=== PATIENT | male | born 1995 ===

== ENCOUNTER 2024-11-03 10:37 | Inpatient (IN) | payer MEDICAID, SELFPAY ==
[2024-11-03] VITALS (10 sets, daily range): BP systolic 148–220; BP diastolic 90–150; PULSE 87–129; RESP 20–28; TEMP 36.4–37.1; O2SAT 95–100; BMI 25.1; BMI 25.3
--- NOTE | 2024-11-03 10:53 | ED.ALCOHOL ---
HPI - Alcohol General Chief Complaint: ETOH/Substance Use Stated Complaint: ETOH WITHDRAWAL/LAST WEEK,JOAQUIM,BP 220/130 Time Seen by Provider: 11/03/24 10:58 Source: patient and EMS Mode of arrival: EMS Limitations: no limitations History of Present Illness ED Provider: Jasmyn Solis PA-C HPI narrative: Patient is a 29 year old assigned male at with a history of alcohol use presenting to the emergency department today with alcohol withdrawal. Patient states that he drinks 3-4 shots per day and has not had a drink for a week. Patient states that he feels unwell with shaking and weakness. Patient denies ever trying to detox before and has not had a seizure that he knows of. Patient denies any dizziness, lightheadedness, abdominal pain, nausea, vomiting, fever, chills, blurry vision, double vision, loss of vision, chest pain, difficulty breathing, shortness of breath, back pain, night sweats, pain with urination, increased urinary frequency, increased urinary urgency, blood in his urine or stool, syncope or a near syncopal episode, recent trauma or falls, bowel incontinence, bladder incontinence, or any other complaints at this time. Related Data Home Medications ?Medication ?Instructions ?Recorded ?Confirmed No Known Home Meds 11/03/24 11/03/24 Allergies Allergy/AdvReac Type Severity Reaction Status Date / Time No Known Allergies Allergy Verified 11/03/24 10:55 Review of Systems Constitutional: Constitutional: Reports no additional constitutional complaints, Denies chills, Denies fever(s), Denies night sweats and Reports weakness Eyes: Eyes: Reports no additional eye complaints, Denies blurry vision, Denies change in vision, Denies diplopia, Denies eye discharge, Denies loss of vision and Denies eye pain ENT: Denies dizziness Cardiovascular: Cardiovascular: Reports no additional cardiovascular complaints, Denies chest pain, Denies lightheadedness, Denies Loss of Consciousness and Denies dyspnea Respiratory: Respiratory: Reports no additional respiratory complaints and Denies dyspnea Gastrointestinal: Gastrointestinal: Reports no additional gastrointestinal complaints, Denies abdominal pain, Denies melena, Denies hematochezia, Denies change in bowel habits and Denies change in stool character Genitourinary: Genitourinary: Reports no additional male genitourinary complaints, Denies hematuria, Denies oliguria, Denies difficulty urinating, Denies dysuria, Denies urinary frequency, Denies urinary hesitancy, Denies urinary incontinence and Denies urinary urgency Musculoskeletal: Musculoskeletal: Reports no additional musculoskeletal complaints, Denies numbness and Denies tingling Neurologic: Denies dizziness, Denies loss of vision, Denies numbness, Denies tingling and Reports weakness Comments: tremoring Psychiatric: Psychiatric: Reports no additional psychiatric complaints Endocrine: Endocrine: Reports no additional endocrine complaints Hematologic/Lymphatic: Hematologic/Lymphatic: Reports no additional hematologic/lymphatic complaints Allergic/Immunologic: Allergic/Immunologic: Reports no additional allergic/immunologic complaints [facility] Past Medical History Attestation statement: The following information was validated with the patient. Source: old records reviewed and nursing notes reviewed Social History Social History Smoked in Last 30 Days: No Use of substances other than those prescribed or required for medical reasons: No Advance Directives: No Advance Directives Information Provided: Yes Do you have a plan to hurt others: No Plan Physical Exam ED Vital Signs: Vital Signs - 24 hr 11/03/24 10:53 11/03/24 12:12 11/03/24 14:00 Temperature 98.7 F Pulse Rate 129 H 100 96 Respiratory Rate 20 28 H 22 H Blood Pressure 203/117 H 162/114 H 161/101 H Pulse Oximetry 98 98 98 Oxygen Delivery Method Room Air Room Air Room Air BMI result Body Mass Index 25.1 Const General: cooperative, no acute distress, alert and awake Nutritional Appearance: well nourished Orientation/consciousness: patient oriented x3 Limitations: no limitations [facility] Head: Yes normal to inspection and Yes atraumatic Ears: hearing grossly normal bilaterally and external ears normal General nose exam: Normal external nose present, no nasal discharge noted and no epistaxis Face and sinus: Yes normal facial exam, No abrasion and No laceration Mouth: Normal oral and palatal mucosa present, no drooling and no muffled voice Eyes General: appearance normal, both eyes and all related structures Periorbital: periorbital findings normal Eyelids: Yes eyelids normal Conjunctivae: conjunctivae normal Pupils: Equal, round and reactive pupils present EOM: EOMs intact bilaterally Neck Neck: Yes normal visual inspection, Yes full ROM and Yes no lymphadenopathy Chest Chest palpation & inspection: normal inspection of the chest Resp Effort & Inspection: normal respiratory effort and able to speak in complete sentences GI Inspection: Yes normal to inspection Neuro Other: very tremulous General: patient oriented x3, moves all extremities and CN's II-XI intact bilaterally Cranial nerves: Yes Equal, round and reactive pupils present Cognition (Neuro): normal cognition Extrem General: Yes normal to inspection, Yes full ROM and Yes capillary refill normal Psych Appearance: grossly normal Mental Status: mental status grossly normal Affect: normal affect Attitude: cooperative Thought process: Normal thought process present Thought content: Normal thought content present Insight: Good insight present (Psych) Course Course Course Narrative: 29 yo male with PMH of alcohol use disorder he is being vague about his consumption but drinks vodka he comes in with c/o nausea, unable to walk, no falls and no headstrikes. He states his last drink was 1 week ago no prior seizures. In triage he is diaphoretic. He denies any other medical problems. He denies GI bleed symptoms. [place] labs, IVF, lytes, thiamine, IV ativan, phenobarb ordered this is a RAPID medical screening exam the rest of the history and physical exam is to be done by the main provider. Medical Decision Making Medical Decision Making MDM Narrative: Patient is a 29 year old assigned male at with a history of alcohol use presenting to the emergency department today with alcohol withdrawal. Patient's physical exam was as noted in the physical exam portion of this note. Patient's blood work showed an ethanol of 23, AST 162, ALT 193, alk phos 118, total CK 323, pH 7.67, and HCO3 of 49. Patient's EKG was unremarkable. I explained my physical exam findings as well as all test results to the patient. I answered all questions asked by the patient. Patient received IM Phenobarbital, thiamine, magnesium, ativan, and IV fluids which, upon re-evaluation, he stated it helped his symptoms significantly. I spoke to the hospitalist team who agreed to admission for alcohol withdrawal. Patient verbalized agreement and understanding with this treatment plan and admission. Differential Diagnosis Differential Diagnoses: The differential diagnosis associated with the presentation includes Alcohol withdrawal Admission/Observation Consideration of admission/observation: Escalation of care including admission/observation considered Patient admitted as noted in the MDM Rationale portion of this note. Consult Healthcare Provider Management of the patient was discussed with: Hospitalist (agreed to admission as noted in the MDM Rationale portion of this note.) Lab Data MDM Lab Attestation statement: I reviewed the patient's lab results. My interpretation of these results are in the MDM Rationale portion of this note. 11/03/24 11:14 11/03/24 11:14 Labs: Lab Results 11/03/24 11/03/24 Range/Units 11:12 11:14 WBC 7.4 (4.8-10.8) X10*3/uL RBC 5.27 (4.60-5.80) X10*6/uL Hgb 14.9 (14.0-18.0) g/dl Hct 43.5 (42.0-52.0) % MCV 82.5 (80.0-98.0) fL MCH 28.3 (27.0-33.0) pg MCHC 34.3 (31.0-36.0) g/dl RDW 16.2 H (11.0-16.0) % Plt Count 165 (160-400) X10*3/uL MPV 8.7 L (9.4-12.4) fL Immature Gran % (Auto) 0.4 (0.0-0.4) % Neut % (Auto) 74.3 H (45-73) % Lymph % (Auto) 10.7 L (20-40) % [place] % (Auto) 13.2 H (2-11) % Eos % (Auto) 0.9 (0-4) % Baso % (Auto) 0.5 (0-2) % Lymph # (Auto) 0.8 L (1.2-4.9) X10*3/uL [place] # (Auto) 1.0 (0.1-1.2) X10*3/uL Eos # (Auto) 0.1 (0.0-0.4) X10*3/uL Baso # (Auto) 0.0 (0.0-0.2) X10*3/uL Abs Immat Gran (auto) 0.03 (0.00-0.03) X10*3/uL Absolute Neuts (auto) 5.5 (2.0-8.3) x10*3/uL Absolute Nucleated RBC 0.000 (0.0-0.012) X10*3/uL Nucleated RBC % (auto) 0.0 (0.0-0.2) /100WBC PT 12.7 H (10.9-12.4) SEC INR 1.1 (0.9-1.1) VBG pH 7.67 H* (7.32-7.43) VBG pCO2 42 mmHg VBG pO2 44 mmHg VBG HCO3 49 H (22-26) mmol/L VBG O2 Saturation 74.0 % VBG Base Excess 26.0 mmol/L Sodium 137 (135-145) mmol/L Potassium 3.3 (3.3-5.1) mmol/L Chloride 95 L (96-108) mmol/L Carbon Dioxide 28 (22-29) mmol/L Anion Gap 17 (12-20) BUN < 3 L (9-16) mg/dL Creatinine 0.69 (0.5-1.4) mg/dL Estim Creat Clear Calc 139.9 Estimated GFR > 60 Random Glucose 150 H (60-115) mg/dL Calcium 9.3 (8.4-10.2) mg/dL Magnesium 1.6 (1.6-2.6) mg/dL Total Bilirubin 0.7 (0.0-1.0) mg/dL Direct Bilirubin 0.3 (0.0-0.5) mg/dL AST 162 H (5-37) U/L ALT 193 H (0-40) U/L Alkaline Phosphatase 118 H (39-117) U/L Total Creatine Kinase 323 H (38-174) U/L Troponin I High Sens 12.4 (<3.5-35.0) ng/L Total Protein 8.9 H (6.5-8.0) g/dL Albumin 4.6 (3.5-5.0) g/dL Lipase 28 (8-78) U/L Ethyl Alcohol 23 mg/dL Influenza Type A (PCR) NEGATIVE (Negative) Influenza Type B (PCR) NEGATIVE (Negative) RSV RNA Qual (PCR) NEGATIVE (Negative) SARS-CoV-2 RNA (RT-PCR) NEGATIVE (Negative) Independent Interpretation I performed an independent interpretation of an: EKG Interpretation: I independently interpreted this EKG and am in agreement with the below findings: Vent. Rate: 103 BPM Atrial Rate: 103 BPM P-R Int: 136 ms QRS Dur: 82 ms QT Int: 362 ms P-R-T Axes: 31 36 61 degrees QTcB Int: 474 ms Sinus tachycardia Otherwise normal ECG No previous ECGs available Referred By: Claudia Acosta Electronically Signed By: JOSE BYRD MD Dictated By: Jose Byrd MD Signed By: Electronically signed by Jose Byrd MD 11/03/24 1442 Independent Historian Clinical information obtained from an independent historian. History obtained from or confirmed by: EMS (EMS provided additional history and confirmed the history provided by the patient.) Medications Administered Generic Name Dose Route Start Last Admin Trade Name Freq PRN Reason Stop Dose Admin Phenobarbital Sodium 191 mg 11/03/24 14:00 11/03/24 14:19 Phenobarbital Sodium 130 Mg/Ml Vial Im Q3hx2 IM 11/03/24 17:01 191 mg Q3H MANJU Administration Protocol Discontinued Medications Generic Name Dose Route Start Last Admin Trade Name Freq PRN Reason Stop Dose Admin Sodium Chloride 1,000 mls @ 999 mls/hr 11/03/24 10:55 11/03/24 12:37 Ns IV 11/03/24 11:55 Infused .Q1H1M ONE Infusion Thiamine HCl 200 mg/ Sodium 102 mls @ 204 mls/hr 11/03/24 10:55 11/03/24 11:54 Chloride IV 11/03/24 11:24 Infused ONCE ONE Infusion Magnesium Sulfate 2 gm in 50 mls @ 25 mls/hr 11/03/24 10:55 11/03/24 12:38 Magnesium Sulfate/H2o IV 11/03/24 12:54 Infused ONCE ONE Infusion Sodium Chloride 1,000 mls @ 999 mls/hr 11/03/24 12:00 11/03/24 13:47 Ns IV 11/03/24 13:00 Infused .Q1H1M MANJU Infusion Lorazepam 2 mg 11/03/24 10:55 11/03/24 11:22 Lorazepam 2 Mg/Ml Vial IVPUSH 11/03/24 10:56 2 mg ONCE ONE Administration Phenobarbital Sodium 255 mg 11/03/24 11:15 11/03/24 11:24 Phenobarbital Sodium 130 Mg/Ml Im Once IM 11/03/24 11:16 255 mg ONCE ONE Administration Protocol Critical Care Time Critical Care Time Critical Care Time: Yes Total Critical Care Time: 44 Attestation: I spent 44 minutes of Critical Care Time with this patient. This does not include time spent on separately reported billable procedures. Discharge Plan Discharge Clinical Impression: Alcohol withdrawal syndrome Patient Disposition: Admitted As Inpatient
--- NOTE | 2024-11-03 10:55 | ECG_ITS ---
Test Reason : weakness Blood Pressure : */* mmHG Vent. Rate : 103 BPM Atrial Rate : 103 BPM P-R Int : 136 ms QRS Dur : 82 ms QT Int : 362 ms P-R-T Axes : 31 36 61 degrees QTcB Int : 474 ms Sinus tachycardia Otherwise normal ECG No previous ECGs available Referred By: Claudia Acosta Electronically Signed By: ALE BYRD MD
[2024-11-03 11:19] LABS: MANUAL DIFF FLAG NO
[2024-11-03 11:21] LABS: Basophils Percent Auto 0.5 % (0-2); Eosinophils Absolute Auto 0.1 X10*3/uL (0.0-0.4); Eosinophils Percent Auto 0.9 % (0-4); Hematocrit 43.5 % (42.0-52.0); Hemoglobin 14.9 g/dl (14.0-18.0); Imm Gran Abs Auto 0.03 X10*3/uL (0.00-0.03); Imm Gran Pct Auto 0.4 % (0.0-0.4); Lymphocytes Absolute Auto 0.8 X10*3/uL (1.2-4.9); Lymphocytes Percent Auto 10.7 % (20-40); Mean Corpuscular HGB Conc 34.3 g/dl (31.0-36.0); Mean Corpuscular Hemoglobin 28.3 pg (27.0-33.0); Mean Corpuscular Volume 82.5 fL (80.0-98.0); Mean Platelet Volume 8.7 fL (9.4-12.4); Monocytes Percent Auto 13.2 % (2-11); Neutrophils Absolute Auto 5.5 x10*3/uL (2.0-8.3); Neutrophils Percent Auto 74.3 % (45-73); Platelet Count 165 X10*3/uL (160-400); Red Blood Count 5.27 X10*6/uL (4.60-5.80); Red Cell Distribution Width 16.2 % (11.0-16.0); White Blood Count 7.4 X10*3/uL (4.8-10.8)
[2024-11-03] MEDS: Thiamine HCL 200 MG in 0.9 % Sodium Chloride 100 ML 204 MG IV (11:22)
[2024-11-03] MEDS: LORazepam 2 MG/ML VIAL IVPUSH (11:22)
[2024-11-03] MEDS: 0.9 % Sodium Chloride 1,000 ML 999 ML IV ×2 (11:23→12:38)
[2024-11-03] MEDS: Magnesium Sulfate/H2O 2 GM/50 ML PIGGYBACK IV (11:23)
[2024-11-03] MEDS: PHENobarbitaL sodium 130 MG/ML IM ONCE 255 MG IM (11:24)
[2024-11-03 11:33] LABS: INTERNATIONAL NORM RATIO 1.1 (0.9-1.1); Prothrombin Time 12.7 SEC (10.9-12.4)
[2024-11-03 11:41] LABS: Alanine Aminotransferase 193 U/L (0-40); Albumin Level 4.6 g/dL (3.5-5.0); Alkaline Phosphatase 118 U/L (39-117); Anion Gap 17 (12-20); Aspartate Amino Transferase 162 U/L (5-37); Bilirubin Direct 0.3 mg/dL (0.0-0.5); Bilirubin Total 0.7 mg/dL (0.0-1.0); Blood Urea Nitrogen < 3 mg/dL (9-16); Calcium 9.3 mg/dL (8.4-10.2); Carbon Dioxide 28 mmol/L (22-29); Chloride 95 mmol/L (96-108); Creatinine Clr Calc Pharmacy 139.9; Estimated Glomerular Filt Rate > 60; Ethanol 23 mg/dL; Glucose Random 150 mg/dL (60-115); Lipase 28 U/L (8-78); Magnesium 1.6 mg/dL (1.6-2.6); Potassium 3.3 mmol/L (3.3-5.1); Sodium 137 mmol/L (135-145); Total Protein 8.9 g/dL (6.5-8.0)
[2024-11-03 11:50] LABS: VBG HCO3 49 mmol/L (22-26); VBG pCO2 42 mmHg; VBG pH 7.67 (7.32-7.43); VBG pO2 44 mmHg; Venous Blood Gas Refer to POC result
[2024-11-03 11:59] LABS: Influenza A PCR NEGATIVE (Negative); Influenza B PCR NEGATIVE (Negative); Resp Syncy Virus RNA Qual PCR NEGATIVE (Negative); SARS COV2 PCR INHOUSE NEGATIVE (Negative)
[2024-11-03 12:51] LABS: Troponin-I High Sensitivity 12.4 ng/L (<3.5-35.0)
[2024-11-03] MEDS: PHENobarbitaL sodium 130 MG/ML VIAL IM Q3Hx2 191 MG IM ×2 (14:19→17:48)
--- NOTE | 2024-11-03 14:48 | PM.IMHP ---
History of Present Illness Date of Service: 11/03/24 Attending physician on admission: Radha Lozano Chief Complaint: alcohol withdrawal 29 y/o M of alcohol use presenting to the emergency department today with alcohol withdrawal. Patient states that he drinks 3-4 shots per day and has not had a drink for a week. Patient states that he feels unwell with shaking and weakness. He denies any nausea vomiting abdominal pain or any focal numbness or weakness. Blood pressure is elevated in 180s. BMP seems fine LFTs elevated, cbc fine Admission is requested for alcohol withdrawals. Review of Systems Review of Systems: As above. Yes all other systems are reviewed and are negative PMFSH Social History Smoked in Last 30 Days: No Use of substances other than those prescribed or required for medical reasons: No Advance Directives: No Advance Directives Information Provided: Yes Do you have a plan to hurt others: No Plan Meds Allergies Allergy/AdvReac Type Severity Reaction Status Date / Time No Known Allergies Allergy Verified 11/03/24 10:55 Active Medications: Current Medications Acetaminophen (Acetaminophen 325 Mg Tablet) 650 mg PO Q6H PRN PRN Reason: Pain, Mild 1-3,fever,headache Calcium Carbonate (Calcium Carbonate 750 Mg Tab.Chew) 750 mg PO Q4H PRN PRN Reason: Heartburn Enoxaparin Sodium (Enoxaparin Sodium 40 Mg/0.4 Ml Syringe) 40 mg SUBCUT DAILY MANJU Magnesium Hydroxide (Milk Of Magnesia 30 Ml Oral.Susp) 30 ml PO DAILY PRN PRN Reason: Constipation Melatonin (Melatonin 3 Mg Tablet) 6 mg PO BEDTIME PRN PRN Reason: Insomnia Pharmacy Consult (Consult Rx Etoh Phenob Im/Po) 1 each MISCELLANE ONCE PRN; Protocol PRN Reason: Consult order Phenobarbital (Phenobarbital 15 Mg Tablet) 45 mg PO BID MANJU; Protocol Stop: 11/05/24 09:01 Phenobarbital (Phenobarbital 15 Mg Tablet) 15 mg PO BID MANJU; Protocol Stop: 11/07/24 09:01 Phenobarbital (Phenobarbital 15 Mg Tablet) 15 mg PO DAILY MANJU; Protocol Stop: 11/09/24 09:01 Phenobarbital Sodium (Phenobarbital Sodium 130 Mg/Ml Vial Im Q3hx2) 191 mg IM Q3H MANJU; Protocol Stop: 11/03/24 17:01 Last Admin: 11/03/24 14:19 Dose: 191 mg Sodium Chloride (0.9 % Sodium Chloride Flush 3 Ml Syringe) 3 ml IVFLUSH QSHIFT [facility] Home Medications ?Medication ?Instructions ?Recorded ?Confirmed ?Last Taken ?Type No Known Home Meds 11/03/24 11/03/24 Unknown History Physical Exam Vital Signs and Narrative: Vital Signs: Last Vital Signs Temp 98.7 F 11/03/24 10:53 Pulse 96 11/03/24 14:00 Resp 22 H 11/03/24 14:00 BP 161/101 H 11/03/24 14:00 Pulse Ox 98 11/03/24 14:00 O2 Del Method Room Air 11/03/24 14:00 BMI result Body Mass Index 25.1 Appearance: Alert.? Oriented X3.?has tremers . cvs: rrr, [id number] . res: clear to auscultation ,no rales or wheezing abd:soft ,nt, bs present. ext pulses present , no cyanosis. neuro: axo3 , nonfocal. Results Labs 11/03/24 11:14 11/03/24 11:14 Labs: Laboratory Results - last 24 hr 11/03/24 11/03/24 11:12 11:14 MCV 82.5 MCH 28.3 MCHC 34.3 RDW 16.2 H Plt Count 165 MPV 8.7 L Immature Gran % (Auto) 0.4 Neut % (Auto) 74.3 H Lymph % (Auto) 10.7 L [place] % (Auto) 13.2 H Eos % (Auto) 0.9 Baso % (Auto) 0.5 Lymph # (Auto) 0.8 L [place] # (Auto) 1.0 Eos # (Auto) 0.1 Baso # (Auto) 0.0 Abs Immat Gran (auto) 0.03 Absolute Neuts (auto) 5.5 Absolute Nucleated RBC 0.000 Nucleated RBC % (auto) 0.0 PT 12.7 H INR 1.1 VBG pH 7.67 H* VBG pCO2 42 VBG pO2 44 VBG HCO3 49 H VBG O2 Saturation 74.0 VBG Base Excess 26.0 Anion Gap 17 Estim Creat Clear Calc 139.9 Estimated GFR > 60 Random Glucose 150 H Calcium 9.3 Magnesium 1.6 Total Bilirubin 0.7 Direct Bilirubin 0.3 AST 162 H ALT 193 H Alkaline Phosphatase 118 H Total Creatine Kinase 323 H Total Protein 8.9 H Albumin 4.6 Lipase 28 Ethyl Alcohol 23 Influenza Type A (PCR) NEGATIVE Influenza Type B (PCR) NEGATIVE RSV RNA Qual (PCR) NEGATIVE SARS-CoV-2 RNA (RT-PCR) NEGATIVE Assessment and Plan (1) Alcohol withdrawal syndrome: Qualifiers: Complication of substance-induced condition: uncomplicated Qualified Code(s): F10.930 - Alcohol use, unspecified with withdrawal, uncomplicated Status: Acute Plan 29-year-old male with no significant past medical history, alcohol use. Alcohol withdrawal: Monitor CIWA scale, thiamine, folic acid, phenobarb. Addiction consult. Elevated BP: Likely in the setting of alcohol withdrawal Added labetalol.Monitor on tele. elevated lft's : likely due to alcohol use moniter lft's. dvt prophylax: s/c lovenox. Patient will benefit 2 midnight stays - due to alcohol withdrawals , moniter tele , bp monitering ,phenobarbital protocol. Quality Stroke Does the patient have a stroke diagnosis?: No VTE Prior VTE?: No VTE Risk Level:: Medical - moderate - high VTE Device Contraindication: N/A - Device Ordered VTE Drug Contraindication: N/A - Med Ordered
--- NOTE | 2024-11-03 15:31 | PHA.MEDREC ---
Addendum entered by Ravi Luis 11/03/24 15:51: reviewed Original Note: Pharmacy Consult ? Medication Reconciliation Pharmacy has completed the medication reconciliation. Spoke with patient to confirm.
[2024-11-03] MEDS: Folic Acid 1 MG TABLET PO (17:46)
[2024-11-03] MEDS: Labetalol HCL 100 MG/20 ML VIAL 10 MG IVPUSH (17:46)
[2024-11-03] MEDS: Thiamine HCL 100 MG TABLET PO (17:46)
[2024-11-03] MEDS: 0.9 % Sodium Chloride Flush 3 ML SYRINGE IVFLUSH (17:49)
[2024-11-03] MEDS: Labetalol HCL 100 MG TABLET PO (19:50)
[2024-11-03] MEDS: PHENobarbitaL 15 MG TABLET 45 MG PO (19:50)
[2024-11-04 03:42] VITALS: BP 140/78; PULSE 67; RESP 20; TEMP 36.3; O2SAT 99
[2024-11-04 07:22] LABS: Alanine Aminotransferase 142 U/L (0-40); Albumin Level 4.1 g/dL (3.5-5.0); Alkaline Phosphatase 108 U/L (39-117); Anion Gap 12 (12-20); Aspartate Amino Transferase 135 U/L (5-37); Bilirubin Total 1.2 mg/dL (0.0-1.0); Blood Urea Nitrogen 3 mg/dL (9-16); Calcium 9.2 mg/dL (8.4-10.2); Carbon Dioxide 28 mmol/L (22-29); Chloride 99 mmol/L (96-108); Estimated Glomerular Filt Rate > 60; Glucose Random 90 mg/dL (60-115); Potassium 3.9 mmol/L (3.3-5.1); Sodium 135 mmol/L (135-145); Total Protein 7.9 g/dL (6.5-8.0)
[2024-11-04 08:00] VITALS: BP 150/98; PULSE 100; RESP 16; TEMP 37.2; O2SAT 97
[2024-11-04] MEDS: Folic Acid 1 MG TABLET PO (08:34)
[2024-11-04] MEDS: Thiamine HCL 100 MG TABLET PO (08:34)
[2024-11-04] MEDS: Nicotine 21 MG PATCH.TD24 TRANSDERMA (08:34)
[2024-11-04] MEDS: cloNIDine HCL 0.1 MG TABLET PO ×3 (08:34→19:56)
[2024-11-04] MEDS: PHENobarbitaL 15 MG TABLET 45 MG PO ×2 (08:34→19:55)
[2024-11-04] MEDS: Enoxaparin Sodium 40 MG/0.4 ML SYRINGE SUBCUT (08:38)
[2024-11-04] MEDS: 0.9 % Sodium Chloride Flush 3 ML SYRINGE IVFLUSH ×2 (08:39→17:29)
[2024-11-04] MEDS: Nicotine Polacrilex Lozenge 2 MG LOZENGE BUCCAL (08:51)
[2024-11-04 11:48] VITALS: BP 138/100; PULSE 98; RESP 14; TEMP 36.8; O2SAT 99
--- NOTE | 2024-11-04 13:40 | P.PNIM_ITS ---
Subjective Subjective Date of Service: 11/04/24 Interval History: alcohol withdrawals Review of Systems alcohol withdrawal somewhat improving bp flactuating Physical Exam 2 Vital Signs: Vital Signs: Last Vital Signs Temp 98.3 F 11/04/24 11:48 Pulse 98 11/04/24 11:48 Resp 14 11/04/24 11:48 BP 138/100 H 11/04/24 11:48 Pulse Ox 99 11/04/24 11:48 O2 Del Method Room Air 11/04/24 11:48 BMI result Body Mass Index 25.3 Appearance: Alert.? Oriented X3.?has tremers . cvs: rrr, [id number] . res: clear to auscultation ,no rales or wheezing abd:soft ,nt, bs present. ext pulses present , no cyanosis. neuro: axo3 , nonfocal. Objective Data Active Medications Acetaminophen (Acetaminophen 325 Mg Tablet) 650 mg PO Q6H PRN PRN Reason: Pain, Mild 1-3,fever,headache Calcium Carbonate (Calcium Carbonate 750 Mg Tab.Chew) 750 mg PO Q4H PRN PRN Reason: Heartburn Clonidine HCl (Clonidine Hcl 0.1 Mg Tablet) 0.1 mg PO BID [facility]; Protocol Last Admin: 11/04/24 08:34 Dose: 0.1 mg Documented By: DARYN Enoxaparin Sodium (Enoxaparin Sodium 40 Mg/0.4 Ml Syringe) 40 mg SUBCUT DAILY [facility] Last Admin: 11/04/24 08:38 Dose: 40 mg Documented By: DARYN Folic Acid (Folic Acid 1 Mg Tablet) 1 mg PO DAILY [facility] Last Admin: 11/04/24 08:34 Dose: 1 mg Documented By: DARYN Magnesium Hydroxide (Milk Of Magnesia 30 Ml Oral.Susp) 30 ml PO DAILY PRN PRN Reason: Constipation Melatonin (Melatonin 3 Mg Tablet) 6 mg PO BEDTIME PRN PRN Reason: Insomnia Nicotine (Nicotine 21 Mg Patch.Td24) 21 mg TRANSDERMA DAILY [facility] Last Admin: 11/04/24 08:34 Dose: 21 mg Documented By: DARYN Nicotine Polacrilex (Nicotine Polacrilex Lozenge 2 Mg Lozenge) 2 mg BUCCAL Q2H PRN PRN Reason: Nicotine Cravings Last Admin: 11/04/24 08:51 Dose: 2 mg Documented By: DARYN Pharmacy Consult (Consult Rx Etoh Phenob Im/Po) 1 each MISCELLANE ONCE PRN; Protocol PRN Reason: Consult order Phenobarbital (Phenobarbital 15 Mg Tablet) 45 mg PO BID [facility]; Protocol Stop: 11/05/24 09:01 Last Admin: 11/04/24 08:34 Dose: 45 mg Documented By: DARYN Phenobarbital (Phenobarbital 15 Mg Tablet) 15 mg PO BID [facility]; Protocol Stop: 11/07/24 09:01 Phenobarbital (Phenobarbital 15 Mg Tablet) 15 mg PO DAILY [facility]; Protocol Stop: 11/09/24 09:01 Sodium Chloride (0.9 % Sodium Chloride Flush 3 Ml Syringe) 3 ml IVFLUSH QSHIFT [facility] Last Admin: 11/04/24 08:39 Dose: 3 ml Documented By: DARYN Thiamine HCl (Thiamine Hcl 100 Mg Tablet) 100 mg PO DAILY [facility] Last Admin: 11/04/24 08:34 Dose: 100 mg Documented By: DARYN Labs 11/03/24 11:14 11/04/24 06:37 Labs: Laboratory Results - last 24 hr 11/04/24 06:37 Anion Gap 12 Estim Creat Clear Calc 142.0 Estimated GFR > 60 Random Glucose 90 Calcium 9.2 Total Bilirubin 1.2 H AST 135 H ALT 142 H Alkaline Phosphatase 108 Total Protein 7.9 Albumin 4.1 Assessment and Plan (1) Alcohol withdrawal syndrome: Status: Acute Plan 29-year-old male with no significant past medical history, alcohol use. Alcohol withdrawal: Monitor CIWA scale, thiamine, folic acid, phenobarb. Addiction consult. Elevated BP: Likely in the setting of alcohol withdrawal clonidine 0.1 mg tid added to help with alcohol withdrwals ,Monitor on tele. elevated lft's : likely due to alcohol use moniter lft's. dvt prophylax: s/c lovenox. ongoing need - due to alcohol withdrawals , moniter tele , bp monitering ,phenobarbital protocol. Quality Stroke Does the patient have a stroke diagnosis?: No VTE Prior VTE?: No VTE Risk Level:: Medical - moderate - high VTE Device Contraindication: N/A - Device Ordered VTE Drug Contraindication: N/A - Med Ordered
[2024-11-04 15:27] VITALS: BP 138/96; PULSE 87; RESP 18; TEMP 36.4; O2SAT 96
--- NOTE | 2024-11-04 16:19 | MHC.CM.PN ---
Addendum entered by Malia Connor RN 11/04/24 16:36: PT AGREEABLE TO ADDICTION MEDICINE IF HOSPITALIST RECCOMMENDS IT. Original Note: EMR REVIEWED, PT W/ETOH WITHDRAWAL, CM MET W/PT WHO REPORTS HE LIEVES W/A ROOMMATE AND HAS LOTS OF FAMILY AROUND, PT IS FULLY INDEP W/CARE, WORKS, NO SERVICES. PT INITIALLY THOUGHT HIS COUSIN HAD SIGNED PT UP FOR INSURANCE AND REQUESTED CM COME BACK AT 4PM, CM MET W/PT AGAIN AND COUSIN AT BEDSIDE AND SHE CONFIRMED PT DOES NOT HAVE HEALTH INSURANCE. REFERRAL PLACED TO [facility]. PT'S GOAL FOR DC IS HOME. PT VERIFIES HE HAS NO PCP AND HAS BEEN EDUCATED ON AND DECLINES TO COMPLETE A HCP AT THIS TIME.
[2024-11-04 17:29] VITALS: BP 138/96
[2024-11-04 19:27] VITALS: BP 126/84; PULSE 112; RESP 17; TEMP 36.6; O2SAT 99
[2024-11-05] VITALS: BP 122/84; PULSE 88; RESP 16; TEMP 36.7; O2SAT 98
[2024-11-05] MEDS: Nicotine Polacrilex Lozenge 2 MG LOZENGE BUCCAL (03:54)
[2024-11-05 04:00] VITALS: BP 124/84; PULSE 94; RESP 20; TEMP 36.6; O2SAT 98
[2024-11-05 07:55] VITALS: BP 129/88; PULSE 90; RESP 16; TEMP 37.2; O2SAT 98
[2024-11-05] MEDS: Folic Acid 1 MG TABLET PO (09:42)
[2024-11-05] MEDS: PHENobarbitaL 15 MG TABLET 45 MG PO (09:42)
[2024-11-05] MEDS: cloNIDine HCL 0.1 MG TABLET PO (09:42)
[2024-11-05] MEDS: Thiamine HCL 100 MG TABLET PO (09:43)
[2024-11-05] MEDS: 0.9 % Sodium Chloride Flush 3 ML SYRINGE IVFLUSH (09:45)
--- NOTE | 2024-11-05 10:29 | MHC.CM.PN ---
PT MEDICALLY CLEARED FOR DC HOME SELF CARE, PT WILL ARRANGE TRANSPORT HOME. CM FOLLOWED UP W/FS WHO REPORTS ONCE PT BRINGS PHOTO ID [facility] [phone] WILL BE SUBMITTED.
--- NOTE | 2024-11-05 11:50 | P.DS_ITS ---
DS: Providers Provider Date of Service: 11/05/24 Date of admission: 11/03/24 14:43 Date of discharge: 11/05/24 Primary care physician: Unknown Physician Consults: 11/03/24 18:25 Addiction Medicine Routine Consulting Provider: Addiction Covering Reason for consultation: 2 to 3 shot per day of alcohol Attending physician on discharge: Radha Lozano Discharging clinician: Radha Lozano DS: Diagnosis Discharge Diagnosis (1) Alcohol withdrawal syndrome: Status: Acute DS: Summary Hospital Course Hospital Course: HPI:29 y/o M of alcohol use presenting to the emergency department today with alcohol withdrawal. Patient states that he drinks 3-4 shots per day and has not had a drink for a week. Patient states that he feels unwell with shaking and weakness. He denies any nausea vomiting abdominal pain or any focal numbness or weakness. Blood pressure is elevated in 180s. BMP seems fine LFTs elevated, cbc fine Admission is requested for alcohol withdrawals. Hospital course:Patient was admitted to the hospital because of alcohol withdrawal-started on phenobarb protocol, seems to be improved significantly. LFT elevated possibly secondary to alcohol use, LFTs improving-recommended to the patient check renal function, electrolytes, liver function test out patiently. Elevated blood pressure likely related to alcohol withdrawal, blood pressure seems to be improved significantly, patient was strongly advised to monitor blood pressure at home, consider outpatient management if still elevated. Lifestyle modification including low-salt diet and exercise, avoid alcohol discussed in detail. Patient was strongly advised to abstain from alcohol as well as smoking. Addiction Team also given information to the patient. Added clonidine p.r.n. for anxiety Patient was strongly recommended for PCP appointment and further management outpatient. Above management discussed with the patient in detail length he understand and in agreement with the above plan, time spent 40 minute. Time Attestation Total time managing care of this patient today: 40 mintues. Discharge Coordination Time (in mins): 40min Quality: Safe Use of Opioids Does Pt have an Active Cancer Diagnosis on the Problem List?: No Quality: Stroke Does the patient have a stroke diagnosis?: No Physical Exam Vital Signs: Vital Signs: Last Vital Signs Temp 98.9 F 11/05/24 07:55 Pulse 90 11/05/24 07:55 Resp 16 11/05/24 07:55 BP 129/88 11/05/24 07:55 Pulse Ox 98 11/05/24 07:55 O2 Del Method Room Air 11/05/24 07:55 BMI result Body Mass Index 25.3 Appearance: Alert.? Oriented X3.?has tremers . cvs: rrr, [id number] . res: clear to auscultation ,no rales or wheezing abd:soft ,nt, bs present. ext pulses present , no cyanosis. neuro: axo3 , nonfocal. Discharge Plan Discharge Anticipated Discharge Date/Time: 11/05/24 11:44 Patient Disposition: Home, Self-Care Discharge Diagnosis: alcohol withdrawal Referrals: Physician,Unknown J [Primary Care Provider] - 1 Week Discharge Medications: New clonidine HCl 0.1 mg Tablet 0.1 mg PO BID PRN (Reason: (Drug) Ingestion) Qty: 20 0RF Protocol: Hold for SBP< HOLD for SBP < : 90 Rx Instructions: anxiety nicotine 21 mg/24 hr Patch 24 Hour 21 mg transdermal DAILY Qty: 7 0RF folic acid 1 mg Tablet 1 mg PO DAILY Qty: 30 0RF thiamine mononitrate (vit B1) 100 mg Tablet 100 mg PO DAILY Qty: 30 0RF Discharge Orders: Discharge Order (Routine); Ordered 11/05/24 Ordered By: Radha Lozano Diet: Advance to usual diet Activity on Discharge: As tolerated Stand Alone Forms: Patient Portal Discharge page Print Language: [place]ian Care Plan Goals: Patient was admitted to the hospital because of alcohol withdrawal-started on phenobarb protocol, seems to be improved significantly. LFT elevated possibly secondary to alcohol use, LFTs improving-recommended to the patient check renal function, electrolytes, liver function test out patiently. Patient was strongly advised to abstain from alcohol as well as smoking. Addiction Team also given information to the patient. Added clonidine p.r.n. for anxiety Patient was strongly recommended for PCP appointment and further management outpatient Health Concerns: As above. Plan of Treatment: Clonidine 0.1 mg b.i.d. p.r.n. for anxiety As above. Assessment: As above.
[2024-11-05 12:00] VITALS: BP 130/89; PULSE 95; RESP 14; TEMP 37; O2SAT 97
--- NOTE | 2024-11-05 13:08 | MHC.RECOVRN ---
Pt accepting of recovery resoures. Written recovery resources provided along with t/w contact information if needed.
== END 2024-11-05 13:59 | disposition home or self-care (01) | DRG 775 ==
LOC: HO.ED 11:20 → HO.EDOVER 14:46 → HO.IMC 16:09
PROVIDERS: Emergency Medicine; Physician Assistant Medical; Admitting Provider Internal Medicine; Emergency Provider Emergency Medicine; Visit Provider Internal Medicine
DX: F10.930 Alcohol use, unspecified with withdrawal, uncomplicated (principal); Z20.822 Contact with and (suspected) exposure to COVID-19; Y90.1 Blood alcohol level of 20-39 mg/100 ml; Z79.899 Other long term (current) drug therapy
CPT/HCPCS: 0241U; 36415; 80048; 80053; 80076; 80307; 82550; 82803; 83690; 83735; 84484; 85025; 85610; 93005; 99285; J1650; J1920; J2060; J2560; J3411; J3475; S9485

== ENCOUNTER → 2024-11-03 10:55 | Outpatient (BNV) | payer SELFPAY | PROVIDERS: Admitting Provider Internal Medicine; Emergency Provider Emergency Medicine; Visit Provider Internal Medicine Cardiovascular Disease | DX: R00.0 Tachycardia, unspecified (principal) | CPT/HCPCS: 93010 ==

== ENCOUNTER → 2024-11-03 14:43 | Outpatient (BNV) | payer SELFPAY | PROVIDERS: Admitting Provider Internal Medicine; Emergency Provider Emergency Medicine; Visit Provider Internal Medicine | DX: F10.930 Alcohol use, unspecified with withdrawal, uncomplicated (principal) | CPT/HCPCS: 99222; 99231; 99239 ==